=== PATIENT | female | born 1980 | race Caucasian/White ===

== ENCOUNTER 2022-10-23 00:23 | Emergency (ER) | payer OTHER ==
[2022-10-23 00:33] VITALS: BP 117/76; PULSE 82; RESP 16; TEMP 98.6; BMI 26.4
[2022-10-23 02:51] LABS: THROAT:GRP A STREP NOT DETECTED (NOTDETECTED)
== END 2022-10-23 00:55 | disposition home or self-care (01) ==
LOC: FER 00:23
DX: J02.9 Acute pharyngitis, unspecified (principal); R50.9 Fever, unspecified; R51.9 Headache, unspecified; J06.9 Acute upper respiratory infection, unspecified; Z20.822 Contact with and (suspected) exposure to COVID-19
CPT/HCPCS: 0241U-QW; 87651; 99283-25